=== PATIENT | female | born 1960 | race Caucasian/White ===

== ENCOUNTER 2017-03-26 19:55 | Emergency (ER) | payer OTHER ==
[~2017-03-26] VITALS: Ht 165.1 cm; Wt 58.1 kg
[2017-03-26 20:08] VITALS: BP 165/92
== END 2017-03-26 22:24 | disposition home or self-care (01) ==
LOC: ED 19:55
DX: S00.83XA Contusion of other part of head, initial encounter (principal); Z91.040 Latex allergy status; W01.0XXA Fall on same level from slipping, tripping and stumbling without subsequent striking against object, initial encounter; Y93.E1 Activity, personal bathing and showering; Y92.89 Other specified places as the place of occurrence of the external cause; Y99.8 Other external cause status

== ENCOUNTER 2017-11-04 12:10 | Emergency (ER) | payer OTHER ==
[~2017-11-04] VITALS: Wt 59.0 kg
[2017-11-04 12:36] LABS: BASO % 0.7 % (0.0-1.0); EOS % 0.7 % (1.0-4.0); HEMATOCRIT 33.1 % (37.0-47.0); HEMOGLOBIN 11.5 g/dl (12.0-16.0); LYMPH # 0.6 10*3/uL (1.3-4.4); LYMPH % 21.6 % (27.0-41.0); MEAN CORPUSCULAR HGB 30.9 pg (27.0-31.0); MEAN CORPUSCULAR HGB CONC 34.7 g/dl (33.0-37.0); MEAN PLATELET VOLUME 9.4 fl (9.6-12.3); MONO # 0.3 10*3/uL (0.1-1.0); MONO % 10.7 % (3.0-9.0); NEUT # 1.9 10*3/uL (2.3-7.9); PLATELET COUNT AUTOMATED 103 10*3/uL (130-400); RED BLOOD COUNT 3.72 10*6/uL (4.10-5.10); RED CELL DISTRI WIDTH 13.8 % (0-14.5); WHITE BLOOD COUNT 2.9 10*3/uL (4.8-10.8)
[2017-11-04 12:48] LABS: ACT PARTIAL THROMBO TIME 28.6 SECONDS (20.8-31.5)
[2017-11-04 12:54] LABS: ALBUMIN 4.4 gm/dl (3.1-4.5); ALKALINE PHOSPHATASE 133 U/L (45-117); BUN 15 mg/dl (7-24); CHLORIDE 90 mmol/L (98-107); CREATININE 1.14 mg/dL (0.55-1.02); POTASSIUM 4.2 mmol/L (3.5-5.1); SGOT/AST 39 IU/L (3-35); SGPT/ALT 25 U/L (12-78); SODIUM 126 mmol/L (136-145); TOTAL PROTEIN 7.8 gm/dL (6.4-8.2)
[2017-11-04 13:05] LABS: TROPONIN I < 0.015 ng/ml (<0.045)
[2017-11-04 14:01] LABS: BILIRUBIN NEGATIVE (NEGATIVE); BLOOD TRACE-INTACT (NEGATIVE); CLARITY SL CLOUDY (CLEAR); COLOR YELLOW (YELLOW); GLUCOSE NEGATIVE (NEGATIVE); KETONE TRACE (NEGATIVE); LEUKO ESTERASE TRACE (NEGATIVE); NITRITE NEGATIVE (NEGATIVE); SPECIFIC GRAVITY <= 1.005 (1.005-1.030); UROBILINOGEN 0.2 E.U./dl (0.2-1.0)
[2017-11-04 14:21] LABS: BACTERIA TRACE
[2017-11-04 14:25] VITALS: BP 170/60
== END 2017-11-04 13:13 | disposition short-term general hospital (02) ==
LOC: ED 12:10
PROVIDERS: Nurse Practitioner Family
DX: I63.9 Cerebral infarction, unspecified (principal); Z90.710 Acquired absence of both cervix and uterus; Z98.51 Tubal ligation status

== ENCOUNTER → 2018-01-27 | Outpatient (CLI) | payer OTHER ==
[2018-01-27 09:49] LABS: BUN 22 mg/dl (7-24); CHLORIDE 105 mmol/L (98-107); CREATININE 0.96 mg/dL (0.55-1.02); POTASSIUM 5.3 mmol/L (3.5-5.1); SODIUM 139 mmol/L (136-145)
== END | disposition home or self-care (01) ==
LOC: MRI 07:56
PROVIDERS: Student in an Organized Health Care Education/Training Program
DX: I77.6 Arteritis, unspecified (principal)

== ENCOUNTER → 2018-06-22 | Outpatient (CLI) | payer OTHER | END | disposition home or self-care (01) | LOC: MAMMO 06-15 11:00 | DX: N64.52 Nipple discharge (principal) ==

== ENCOUNTER 2019-07-06 10:10 | Inpatient (IN) | payer OTHER ==
[~2019-07-06] VITALS: Ht 167.6 cm; Wt 66.8 kg
[2019-07-06 10:15] VITALS: BP 153/82
[2019-07-06 10:51] LABS: HEMATOCRIT 34.6 % (37.0-47.0); HEMOGLOBIN 12.8 g/dl (12.0-16.0); MEAN CELL VOLUME 92.8 fl (81.0-99.0); MEAN CORPUSCULAR HGB 34.3 pg (27.0-31.0); MEAN PLATELET VOLUME 9.6 fl (9.6-12.3); PLATELET COUNT AUTOMATED 111 10*3/uL (130-400); RED BLOOD COUNT 3.73 10*6/uL (4.10-5.10); RED CELL DISTRI WIDTH 11.5 % (0-14.5); WHITE BLOOD COUNT 5.2 10*3/uL (4.8-10.8)
[2019-07-06 10:56] LABS: ACT PARTIAL THROMBO TIME 28.1 SECONDS (20.0-32.1)
[2019-07-06 11:00] LABS: ALBUMIN 4.7 gm/dl (3.1-4.5); ALKALINE PHOSPHATASE 118 U/L (45-117); BUN 11 mg/dl (7-24); CHLORIDE 82 mmol/L (98-107); CREATININE 0.99 mg/dL (0.55-1.02); POTASSIUM 4.6 mmol/L (3.5-5.1); SGOT/AST 48 IU/L (3-35); SGPT/ALT 28 U/L (12-78); TOTAL PROTEIN 8.3 gm/dL (6.4-8.2)
[2019-07-06 11:02] LABS: ETHYL ALCOHOL < 3.0 mg/dl (<3); TROPONIN I < 0.015 ng/ml (<0.045)
[2019-07-06 11:03] LABS: SODIUM 116 mmol/L (136-145)
--- NOTE | 2019-07-06 11:03 | NUR ---
DR GARCIA AWARE OF CRITIAL NA 116 AND LA OF 3.4
[2019-07-06 11:09] LABS: PLATELET SUFFICIENCY LOW (NORMAL); TOTAL CELLS COUNTED 100 #CELLS
--- NOTE | 2019-07-06 11:42 | NUR ---
LAB CALLS AND STATES THAT THE PTS OSMOLALITY IS 246. DOC MADE AWARE.
[2019-07-06 12:00] VITALS: BP 159/79
[2019-07-06 13:25] VITALS: BP 147/81
[2019-07-06 13:36] LABS: BILIRUBIN NEGATIVE (NEGATIVE); BLOOD 1+ (NEGATIVE); CLARITY SL CLOUDY (CLEAR); COLOR YELLOW (YELLOW); GLUCOSE NEGATIVE (NEGATIVE); KETONE 2+ (NEGATIVE); LEUKO ESTERASE NEGATIVE (NEGATIVE); NITRITE NEGATIVE (NEGATIVE); PH 5.5 (5.0-9.0); SPECIFIC GRAVITY 1.025 (1.005-1.030); UROBILINOGEN 0.2 E.U./dl (0.2-1.0)
[2019-07-06 13:47] LABS: BACTERIA 2+; MUCOUS 1+
[2019-07-06 14:43] LABS: URINE AMPHETAMINES < 1000 (1000ng/ml); URINE BARBITURATES < 200 (200ng/ml); URINE BENZODIAZEPINES > 200 (200ng/ml); URINE CANNABINOIDS (THC) < 50 (50ng/ml); URINE COCAINE < 300 (300ng/ml); URINE METHADONE < 300 (300ng/ml); URINE OPIATES < 300 (300ng/ml)
[2019-07-06 14:45] LABS: URINE PHENCYCLIDINE < 25 (25ng/ml)
[2019-07-06 17:55] VITALS: BP 151/84
--- NOTE | 2019-07-06 17:55 | NUR ---
A 59, admitted to ICCU, under the services of DALIA Frank MD with a diagnosis of ALCOHOL WITHDRAWAL,LOW NA AND SEIZURE ACTIVITY. Chief complaint is JUST DIDNT FEEL RIGHT. Patient arrived via stretcher from ER. Monitor applied. Initial assessment completed. Vital signs taken and recorded. DALIA FRANK MD notified of admission to the unit. Orders received. See assessment for past medical history, medications and allergies. Patient and/or family oriented to unit. [facility] ICCU visitation policy reviewed. Clothing/patient valuable form completed. ADRIANA SELF
[2019-07-06] MEDS ORDERED: SINGULAIR10 M1 PO (18:10)
[2019-07-06] MEDS ORDERED: RANITIDINE HCL150 M1 PO (18:11)
[2019-07-06] MEDS ORDERED: PROTONIX40 MG PO (18:13)
[2019-07-06] MEDS ORDERED: LEXAPRO20 MG PO (18:14)
[2019-07-06] MEDS ORDERED: Zestril,Prinivi40 MG PO (18:15)
[2019-07-06] MEDS ORDERED: Synthroid,Levo25 MCG PO (18:16)
[2019-07-06 18:54] LABS: BUN 10 mg/dl (7-24); CHLORIDE 87 mmol/L (98-107); POTASSIUM 4.3 mmol/L (3.5-5.1)
[2019-07-06 18:59] LABS: SODIUM 119 mmol/L (136-145)
[2019-07-06 20:00] VITALS: BP 151/73
--- NOTE | 2019-07-06 20:59 | NUR ---
PATIENTS STATED THAT PATIENT IS ASKING FOR MEDICATION TO HELP WITH HER SINUSES SAID THAT SHE IS BLOWING HER NOSE AND IT IS GREEN ANDTHICK MUCUS. CALLED DOCTOR ROGERIO AND INFORMED HIM THAT PATIENT IS REQUESTING MEDICATION.
[2019-07-06 22:30] LABS: BUN 10 mg/dl (7-24); CHLORIDE 91 mmol/L (98-107); POTASSIUM 3.9 mmol/L (3.5-5.1); SODIUM 122 mmol/L (136-145)
--- NOTE | 2019-07-06 22:37 | NUR ---
DOCTOR BROWN MADE AWARE OF PATIENTS LABS ORDERS RECIEVED TO PUT FLUIDS AT 70ML/HR AND RECHECK SODIUM IN 4 HOURS
[2019-07-07] VITALS: BP 149/81
[2019-07-07 04:00] VITALS: BP 128/76
[2019-07-07 07:11] LABS: CHLORIDE 92 mmol/L (98-107); POTASSIUM 3.7 mmol/L (3.5-5.1); SODIUM 124 mmol/L (136-145)
[2019-07-07 07:17] LABS: ALBUMIN 4.5 gm/dl (3.1-4.5); ALKALINE PHOSPHATASE 114 U/L (45-117); BUN 9 mg/dl (7-24); CHOLESTEROL 372 mg/dL (<200); CREATININE 0.85 mg/dL (0.55-1.02); PHOSPHOROUS 2.1 mg/dL (2.5-4.9); SGOT/AST 50 IU/L (3-35); SGPT/ALT 28 U/L (12-78); TOTAL PROTEIN 7.6 gm/dL (6.4-8.2); TRIGLYCERIDES 145 mg/dl (<150); VLDL CHOLESTEROL 29 mg/dL (6-40)
[2019-07-07 07:18] LABS: FREE T4 1.05 ng/dl (0.76-1.46); HDL CHOLESTEROL 120 mg/dl (40-60); HEMATOCRIT 34.4 % (37.0-47.0); HEMOGLOBIN 12.7 g/dl (12.0-16.0); LDL CHOLESTEROL 223 mg/dL (9-159); MEAN CORPUSCULAR HGB 34.3 pg (27.0-31.0); MEAN CORPUSCULAR HGB CONC 36.9 g/dl (33.0-37.0); MEAN PLATELET VOLUME 10.5 fl (9.6-12.3); PLATELET COUNT AUTOMATED 88 10*3/uL (130-400); RED CELL DISTRI WIDTH 11.7 % (0-14.5); WHITE BLOOD COUNT 3.4 10*3/uL (4.8-10.8)
--- NOTE | 2019-07-07 07:20 | NUR ---
SODIUM LEVEL REPORTED TO DR BROWN. NO IV FLUIDS OREDERED AT THIS TIME. RECEHCK SODIUM LEVEL AT 1030 AM
--- NOTE | 2019-07-07 07:20 | NUR ---
24 HR chart check completed.
[2019-07-07 07:43] VITALS: BP 138/84
[2019-07-07 08:05] LABS: PLATELET SUFFICIENCY LOW (NORMAL); TOTAL CELLS COUNTED 100 #CELLS
[2019-07-07 08:12] LABS: VITAMIN D, 25-HYDROXY 61.6 ng/mL (30-100)
--- NOTE | 2019-07-07 08:39 | NUR ---
PT RESTING ON BED WITH EASY RESPIRATIONS. VASQUEZ CATHETER IN PLACE DRAINING CLEAR YELLOW URINE. PT DENIES ANY PAIN. NO WITHDRAWAL SYMPTOMS NOTED. PT ATE PART OF BREAKFAST NOTING THAT SHE NORMALLY DOES NOT EAT MUCH BREAKFAST. NO SHORTNESS OF BREATH OR CHEST PAIN REPORTED.
--- NOTE | 2019-07-07 11:00 | NUR ---
DR BROWN AT BEDSIDE FOR EXAM. NEW ORDERS PLACED FOR NSS INFUSION AND REPEAT SODIUM LEVLES. PT RESTING QUIETLY AT THIS TIME.
[2019-07-07 12:00] VITALS: BP 142/76
--- NOTE | 2019-07-07 13:57 | NUR ---
PT BECOMING DISORIENTED AT THE DAY GOES ON. JUMPING OUT OF BED UNASSISTED DESPITE BEING TOLD FREQUENTLY TO WAIT FOR ASSISTANCE. STATED SHE WANTS TO GO OUTSIDE FOR A WALK AND STATED SHE IS IN HER APARTMENT AND IN [facility]. ATIVAN TAPER BEING GIVEN ORDERED.
--- NOTE | 2019-07-07 14:08 | NUR ---
IVF'S DECREASED TO 30CC/HR PER DR LAMB ORDER.
--- NOTE | 2019-07-07 14:59 | NUR ---
PT AGITATED WANTING TO LEAVE. PT'S ARRIVED AT THIS TIME AND SHE ARGUED WITH HIM BUT AGREED TO GET BACK IN BED FOR NOW IF HE STAYS WITH HER. PO ATIVAN GIVEN PER PROTOCOL.
--- NOTE | 2019-07-07 15:14 | NUR ---
PT CONTINUES TO WANT TO LEAVE. AT BEDSIDE AND TRYING TO ENCOURAGE PT TO STAY DUE TO HAVING SEIZURES. PT IS INSISTENT ON GOING HOME. PT IS AWARE OF PERSON, PLACE AND TIME NOW AND JUST STATES "I DONT WANT ANY PART OF THIS". DR WEBSTER WAS CALLED AND STATED PT IS TO FOLLOW UP WITH HIM FOR SEIZURE MED AND LAB WORK ON TUESDAY IS SHE INSISTS ON SIGNING OUT AMA TODAY. PT AND HER INSTRUCTED ON THIS.
--- NOTE | 2019-07-07 15:27 | NUR ---
Patient signed out AMA. Patient encouraged to stay and advised of possible consequences of premature discharge. Physician DR WEBSTER and building insulation supervisor CHAPARRO WALKER notified. Patient instructed what to do regarding care post-departure from the hospital; emergency phone numbers provided. Patent was accompanied by HER EFREN. RUSSELL EMERY
[2019-07-08 16:05] LABS: HEPATITIS B SURFACE AG Negative (Negative); HEPATITIS C VIRUS ANTIBODY <0.1 s/co (0.0-0.9)
== END 2019-07-07 17:36 | disposition left against medical advice (07) | DRG 640 ==
LOC: ED 10:10 → ICCU 16:22 → EDHOLD 16:22 → ICCU 17:17
PROVIDERS: Emergency Medicine; Internal Medicine; Student in an Organized Health Care Education/Training Program; ADMIT Internal Medicine
DX: E87.1 Hypo-osmolality and hyponatremia (principal); I61.9 Nontraumatic intracerebral hemorrhage, unspecified; F10.230 Alcohol dependence with withdrawal, uncomplicated; E87.2 Acidosis; R74.0 Nonspecific elevation of levels of transaminase and lactic acid dehydrogenase [LDH]; D69.6 Thrombocytopenia, unspecified; D72.810 Lymphocytopenia; F41.9 Anxiety disorder, unspecified; R29.6 Repeated falls; J32.9 Chronic sinusitis, unspecified; J30.2 Other seasonal allergic rhinitis; K21.9 Gastro-esophageal reflux disease without esophagitis; I10 Essential (primary) hypertension; F32.9 Major depressive disorder, single episode, unspecified; E03.9 Hypothyroidism, unspecified; E87.8 Other disorders of electrolyte and fluid balance, not elsewhere classified; E83.39 Other disorders of phosphorus metabolism; Z86.73 Personal history of transient ischemic attack (TIA), and cerebral infarction without residual deficits; Z82.49 Family history of ischemic heart disease and other diseases of the circulatory system; Z83.3 Family history of diabetes mellitus; Z81.8 Family history of other mental and behavioral disorders

== ENCOUNTER 2019-07-07 16:59 | Inpatient (IN) | payer OTHER ==
[~2019-07-07] VITALS: Ht 167.6 cm; Wt 66.7 kg
[~2019-07-07 16:59] MED LIST: LEXAPRO20 MG PO; PROTONIX40 MG PO; RANITIDINE HCL150 M1 PO; SINGULAIR10 M1 PO; Synthroid,Levo25 MCG PO; Zestril,Prinivi40 MG PO
[2019-07-07 17:00] VITALS: BP 168/86
[2019-07-07 17:36] LABS: BASO % 0.4 % (0.0-1.0); EOS % 0.2 % (1.0-4.0); HEMATOCRIT 34.6 % (37.0-47.0); HEMOGLOBIN 12.6 g/dl (12.0-16.0); LYMPH # 0.5 10*3/uL (1.3-4.4); LYMPH % 10.4 % (27.0-41.0); MEAN CELL VOLUME 94.3 fl (81.0-99.0); MEAN CORPUSCULAR HGB 34.3 pg (27.0-31.0); MEAN CORPUSCULAR HGB CONC 36.4 g/dl (33.0-37.0); MONO # 0.4 10*3/uL (0.1-1.0); MONO % 9.3 % (3.0-9.0); NEUT # 3.7 10*3/uL (2.3-7.9); NEUT % 79.3 % (47.0-73.0); PLATELET COUNT AUTOMATED 88 10*3/uL (130-400); RED BLOOD COUNT 3.67 10*6/uL (4.10-5.10); RED CELL DISTRI WIDTH 11.7 % (0-14.5); WHITE BLOOD COUNT 4.6 10*3/uL (4.8-10.8)
[2019-07-07 17:53] LABS: ALBUMIN 4.7 gm/dl (3.1-4.5); ALKALINE PHOSPHATASE 124 U/L (45-117); BUN 12 mg/dl (7-24); CHLORIDE 89 mmol/L (98-107); CREATININE 1.01 mg/dL (0.55-1.02); SGOT/AST 76 IU/L (3-35); SGPT/ALT 41 U/L (12-78); SODIUM 122 mmol/L (136-145); TOTAL PROTEIN 8.1 gm/dL (6.4-8.2)
--- NOTE | 2019-07-07 18:00 | NUR ---
PT CONFUSED. DRESSED SELF, WANTING TO LEAVE. DISCONTINUED OWN TELE MONITOR. ABLE TO REDIRECT PT TO BED, DISROBE AND PLACE IN A GOWN. PT UNCOOPERATIVE WITH TELE MONITOR. AT BEDSIDE. PT ORIENTED TO SELF ONLY.
[2019-07-07 18:50] VITALS: BP 156/84
--- NOTE | 2019-07-07 18:50 | NUR ---
A 59, admitted to ICCU, under the services of DALIA Frank MD with a diagnosis of HYPONATREMIA. Chief complaint is PT SIGNED AMA 4 HOURS AGO. Patient arrived via stretcher from ER. Monitor applied. Initial assessment completed. Vital signs taken and recorded. DALIA FRANK MD notified of admission to the unit. Orders received. See assessment for past medical history, medications and allergies. Patient and/or family oriented to unit. [facility] ICCU visitation policy reviewed. Clothing/patient valuable form completed. NANCY SIBLEY
--- NOTE | 2019-07-07 19:00 | NUR ---
ON ARRIVAL TO ICCU PT IMMEDIATLY JUMPING OUT OF BED, CONFUSED STATING SHE IS LEAVING. PT IS CONFUSED TO PLACE AND TIME. PT BECOMING AGITATED PUSHING STAFF TRYING TO LEAVE. DR WEBSTER NOTIFIED. PINK SLIPPED FILLED OUT. ORDER FOR HALDOL RECIEVED.
--- NOTE | 2019-07-07 19:50 | NUR ---
SPOKE WITH DR WEBSTER REGARDING ORDERS FOR PATIENT, ORDER RECIEVED FOR DANE HECTOR NOW FOR CONTINUED AGITATION. STATED TO CONTINUE ORDERS PERTAINING TO PATIENT CAR EAND OTHER MEDICATIONS FROM EARLIER TODAY PRIOR TO PATIENT LEAVING AMA. ORDER TO OBTIAN BMP AND CONSULT WITH RESULTS.
[2019-07-07 20:00] VITALS: BP 143/79
--- NOTE | 2019-07-07 20:13 | NUR ---
IM GEODON GIVEN INTO THE RIGHT DELTOID PER DRS ORDERS FOR INCREASED AGITATION, RESTLESSNESS. PATIENT TOLERATED WELL. RN WILL MONITOR FOR RELIEF OF SYMPTOMS
--- NOTE | 2019-07-07 20:25 | NUR ---
SPOKE WITH DR BROWN REGARDING 2000 LABS, ORDERS RECIEVED TO START IV FLUIDS AND TO CHECK NA LEVEL AT 2330, AND TO CALL HER AT 0000. ORDERS TO BE PLACED
[2019-07-07 20:35] LABS: BUN 12 mg/dl (7-24); CHLORIDE 91 mmol/L (98-107); CREATININE 0.88 mg/dL (0.55-1.02); POTASSIUM 4.1 mmol/L (3.5-5.1); SODIUM 123 mmol/L (136-145)
--- NOTE | 2019-07-07 21:19 | NUR ---
PATIENT RESTING WITH EYES CLOSED AT THIS TIME, SNORING RESPIRATIONS WITHOUT ANY SIGNS OR SYMPTOMS OF DISTRESS. APPEARS TO BE RESTING MUCH EASIER THAN EARLIER. RN WILL CONTINUE TO MONITOR
[2019-07-08] VITALS: BP 138/81
[2019-07-08 00:32] LABS: BUN 11 mg/dl (7-24); CHLORIDE 94 mmol/L (98-107); CREATININE 0.88 mg/dL (0.55-1.02); POTASSIUM 4.7 mmol/L (3.5-5.1); SODIUM 124 mmol/L (136-145)
--- NOTE | 2019-07-08 00:39 | NUR ---
SPOKE WITH DR BROWN REGARDING 2330 LABS, STATES TO CONTINUE FLUIDS ORDERED. AND TO OBTAIN LABS AT 500.
--- NOTE | 2019-07-08 00:44 | NUR ---
PATIENT REFUSING TO TAKE SCHEDULED PO ATIVAN, PATIENT REFUSING TO TAKE "ANY MEDS WE GIVE HER" RN TO ADMINISTER IV ATIVAN PER DRS ORDERS FOR INCREASED AGITATION AND RESTLESSNESS. PATIENT ALSO HAS SLIGHT TREMOR NOTED TO BILATERAL HANDS
--- NOTE | 2019-07-08 01:50 | NUR ---
PATIENT IS AGAIN RESTING QUIETLY WITH EYES CLOSED, ALTHOUGH EASILY AWAKENS BY VOICE. PATIENT REMAINS CONFUSED. ALERT TO SELF ONLY. FREQUENTLY ASKS TO GET OUT OF BED AND TELLS STAFF THAT "SHE'S LEAVING" BILATERAL WRIST RESTRAINTS REMAIN IN PLACE PER DRS ORDERS TO PREVENT HARM TO PATIENT AND STAFF. WITHIN SIGHT OF RN. WILL MONITOR
[2019-07-08 04:00] VITALS: BP 152/83
--- NOTE | 2019-07-08 04:16 | NUR ---
PATIENT HAS TAKEN 0400 DOSE OF ATIVAN WITHOUT DIFFICULTY. PATIENT WAS ALSO CLEANED UP AND BATHED FOR LARGE AMOUNT OF INCONTINENT URINE AND BED BATH AND BED CHANGE WERE ALSO COMPLETED AT THIS TIME. PATIENT REMAINS CONFUSED AND INSISTS THAT SHE "MUST GET UP TO GET READY FOR WORK" AND ALSO THAT SHE "IS GOING TO BE LATE FOR WORK" RN ATTEMPTED TO REORIENT PATIENT BUT PATIENT DOES NOT REORIENT.
[2019-07-08 05:16] LABS: ALBUMIN 4.5 gm/dl (3.1-4.5); ALKALINE PHOSPHATASE 120 U/L (45-117); BUN 9 mg/dl (7-24); CHLORIDE 96 mmol/L (98-107); CREATININE 0.83 mg/dL (0.55-1.02); POTASSIUM 3.9 mmol/L (3.5-5.1); SGOT/AST 60 IU/L (3-35); SGPT/ALT 36 U/L (12-78); SODIUM 127 mmol/L (136-145); TOTAL PROTEIN 8.1 gm/dL (6.4-8.2)
[2019-07-08 05:52] LABS: BASO % 0.4 % (0.0-1.0); EOS % 0.8 % (1.0-4.0); HEMATOCRIT 36.3 % (37.0-47.0); HEMOGLOBIN 13.1 g/dl (12.0-16.0); LYMPH # 0.9 10*3/uL (1.3-4.4); LYMPH % 17.5 % (27.0-41.0); MEAN CELL VOLUME 93.6 fl (81.0-99.0); MEAN CORPUSCULAR HGB 33.8 pg (27.0-31.0); MEAN CORPUSCULAR HGB CONC 36.1 g/dl (33.0-37.0); MEAN PLATELET VOLUME 10.6 fl (9.6-12.3); MONO # 0.5 10*3/uL (0.1-1.0); MONO % 10.3 % (3.0-9.0); NEUT # 3.5 10*3/uL (2.3-7.9); NEUT % 70.6 % (47.0-73.0); PLATELET COUNT AUTOMATED 85 10*3/uL (130-400); RED BLOOD COUNT 3.88 10*6/uL (4.10-5.10); RED CELL DISTRI WIDTH 11.8 % (0-14.5)
--- NOTE | 2019-07-08 08:22 | NUR ---
PT HAS BEEN SLEEPING QUIETLY FOR THE LAST 2 HOURS.
[2019-07-08 08:55] VITALS: BP 158/83
--- NOTE | 2019-07-08 08:57 | NUR ---
PT DID WAKE UP AND OPEN EYES, MOVING AROUND IN BED. CONFUSED TO PLACE AND TIME. I TRIED TO GIVE PT HER PO MEDS, SHE PUT THEM IN HER MOUTH BUT THEN SPIT THEM RIGHT BACK OUT AND WOULD NOT SWALLOW THEM.
--- NOTE | 2019-07-08 09:05 | NUR ---
1MG IV ATIVAN GIVEN DUE TO PT REFUSING TO TAKE ANY PO MEDS THIS AM.
--- NOTE | 2019-07-08 09:16 | NUR ---
I SPOKE WITH DR BROWN AND MADE HER AWARE OF PT'S NA LEVEL OF 127. REPEAT NA LEVEL ORDERED FOR 4 HOURS FROM NOW AND CONTINUE TO NORMAL SALINE AT 50CC/HR.
--- NOTE | 2019-07-08 09:48 | NUR ---
DR WEBSTER NOTIFIED PT WILL NOT TAKE ANY PO MEDS. KEPPRA CHANGED TO IV FORM.
--- NOTE | 2019-07-08 09:55 | NUR ---
PT REMAINS CONFUSED STATING THAT SHE IS IN SOME SORT OF SCHOOL AND UNAWARE TO WHY SHE IS HERE. EASILY AGITATED WITH ANY QUESTIONS ASKED OF HER. IS AT BEDSIDE AND SOFT WRIST RESTRAINTS UNTIED HE IS SITTING NEXT TO HER AND WE WILL MONITOR CLOSELY.
--- NOTE | 2019-07-08 10:32 | NUR ---
DR BROWN MADE AWARE OF SODIUM LEVEL OF 130. NEW ORDER TO DC IVF'S AND RECHECK NA LEVEL AT 3PM.
--- NOTE | 2019-07-08 10:52 | NUR ---
PT AWAKE AND CONVERSING WITH AT THIS TIME. COOPERATIVE WITH STAFF AT THIS TIME. RESTRAINTS REMAIN OFF. WANTING TO ORDER SOMETHING TO EAT. IVF'S TURNED OFF PER DR KEVIN ESPINO.
[2019-07-08 12:00] VITALS: BP 149/76
--- NOTE | 2019-07-08 13:47 | NUR ---
[facility] ON [facility] NOTIFIED OF NEW CONSULT ORDER.
[2019-07-08 15:36] VITALS: BP 146/85
--- NOTE | 2019-07-08 16:17 | NUR ---
DR BROWN NOTIFIED OF SODIUM LEVEL OF 130. ORDER TO REPEAT LEVEL AT 2200.
--- NOTE | 2019-07-08 19:24 | NUR ---
PATIENT BECOMING AGITATED STATING SHE WAS LEAVING.DOCTOR DARIN HERE DANE ORDRADHA AND GIVEN AT THIS TIME.
[2019-07-08 20:00] VITALS: BP 148/82
--- NOTE | 2019-07-08 22:26 | NUR ---
CALLED DOCTOR BROWN WITH PATIENTS SODIUM AND IT IS 130 CURRENTLY RESTARTED FLUIDS AND RECHECK SODIUM WITH AM LABS
[2019-07-09] VITALS: BP 102/61
[2019-07-09 04:00] VITALS: BP 117/57
[2019-07-09 08:00] VITALS: BP 134/76
[2019-07-09 09:28] LABS: BUN 12 mg/dl (7-24); CHLORIDE 104 mmol/L (98-107); CREATININE 0.79 mg/dL (0.55-1.02); POTASSIUM 3.6 mmol/L (3.5-5.1); SODIUM 136 mmol/L (136-145)
[2019-07-09 12:00] VITALS: BP 135/62
[2019-07-09 16:00] VITALS: BP 135/62
--- NOTE | 2019-07-09 16:43 | NUR ---
MEDICATED WITH ATIVAN 1MG PO ORDERED FOR ALCOHOL WITHDRAWAL.
[2019-07-09] MEDS ORDERED: SODIUM CHLORIDE1 GM PO (17:26)
[2019-07-09] MEDS ORDERED: KEPPRA750 MG PO (17:26)
[2019-07-09] MEDS ORDERED: ATIVAN0.5 MG PO (17:26)
--- NOTE | 2019-07-09 17:30 | NUR ---
Discharge instructions reviewed with patient/family. Patient receptive and verbalizes understanding. Follow-up care arranged. Written instructions given to patient/family. LUIS FERNANDO RICHARDSON
--- NOTE | 2019-07-09 17:37 | NUR ---
DC TO HOME
== END 2019-07-09 17:37 | disposition home or self-care (01) | DRG 640 ==
LOC: ED 16:59 → ICCU 18:50 → EDHOLD 18:50 → ICCU 18:52
PROVIDERS: Emergency Medicine; Internal Medicine Nephrology; ADMIT Internal Medicine
DX: E87.1 Hypo-osmolality and hyponatremia (principal); G93.41 Metabolic encephalopathy; F41.9 Anxiety disorder, unspecified; R29.6 Repeated falls; E87.8 Other disorders of electrolyte and fluid balance, not elsewhere classified; E83.39 Other disorders of phosphorus metabolism; D69.6 Thrombocytopenia, unspecified; E87.2 Acidosis; R42 Dizziness and giddiness; I10 Essential (primary) hypertension; F32.9 Major depressive disorder, single episode, unspecified; E03.9 Hypothyroidism, unspecified; F10.10 Alcohol abuse, uncomplicated; G40.909 Epilepsy, unspecified, not intractable, without status epilepticus; K21.9 Gastro-esophageal reflux disease without esophagitis; Z90.710 Acquired absence of both cervix and uterus; Z98.51 Tubal ligation status; Z83.3 Family history of diabetes mellitus; Z82.49 Family history of ischemic heart disease and other diseases of the circulatory system; Z82.0 Family history of epilepsy and other diseases of the nervous system; Z79.899 Other long term (current) drug therapy; Z86.73 Personal history of transient ischemic attack (TIA), and cerebral infarction without residual deficits

== ENCOUNTER 2022-09-03 19:22 | Inpatient (IN) | payer OTHER ==
[~2022-09-03] VITALS: Ht 167.6 cm; Wt 64.4 kg
[~2022-09-03 19:22] MED LIST changes: +ATIVAN0.5 MG PO; +KEPPRA750 MG PO; +SODIUM CHLORIDE1 GM PO
[2022-09-03 19:28] VITALS: BP 136/67
[2022-09-03 20:15] LABS: BASO % 0.3 % (0.0-1.0); EOS % 0.6 % (1.0-4.0); HEMATOCRIT 32.3 % (37.0-47.0); LYMPH # 0.7 10*3/uL (1.3-4.4); LYMPH % 21.5 % (27.0-41.0); MEAN CELL VOLUME 103.5 fl (81.0-99.0); MEAN CORPUSCULAR HGB CONC 32.8 g/dl (33.0-37.0); MEAN PLATELET VOLUME 10.8 fl (9.6-12.3); MONO # 0.3 10*3/uL (0.1-1.0); MONO % 9.3 % (3.0-9.0); NEUT # 2.3 10*3/uL (2.3-7.9); PLATELET COUNT AUTOMATED 102 10*3/uL (130-400); RED BLOOD COUNT 3.12 10*6/uL (4.10-5.10); RED CELL DISTRI WIDTH 13.8 % (0-14.5); WHITE BLOOD COUNT 3.4 10*3/uL (4.8-10.8)
[2022-09-03 20:34] LABS: ALKALINE PHOSPHATASE 145 U/L (46-116); BUN 9 mg/dl (9-23); CHLORIDE 102 mmol/L (98-107); POTASSIUM 3.8 mmol/L (3.4-5.1); SGPT/ALT 22 U/L (10-49); TOTAL PROTEIN 6.4 gm/dL (6.0-8.0)
[2022-09-03 20:35] VITALS: BP 108/59
[2022-09-03 20:40] LABS: ETHYL ALCOHOL < 3.0 mg/dl (<3)
[2022-09-03 21:03] LABS: BILIRUBIN Negative (Negative); BLOOD Negative (Negative); CLARITY Clear (Clear); COLOR Yellow (Yellow); GLUCOSE Negative (Negative); KETONE Trace (Negative); LEUKO ESTERASE Negative (Negative); NITRITE Negative (Negative); SPECIFIC GRAVITY >= 1.030 (1.001-1.030)
[2022-09-03 21:05] LABS: URINE AMPHETAMINES Negative (1000ng/ml); URINE BARBITURATES Positive (200ng/ml); URINE BENZODIAZEPINES Negative (200ng/ml); URINE CANNABINOIDS (THC) Negative (50ng/ml); URINE COCAINE Negative (300ng/ml); URINE METHADONE Negative (300ng/ml); URINE OPIATES Negative (300ng/ml); URINE PHENCYCLIDINE Negative (25ng/ml)
[2022-09-03 21:35] LABS: RBC 0-2 rbc/hpf (0-2)
[2022-09-03 21:36] LABS: BACTERIA TRACE; EPITHELIAL CELLS 0-2; MUCOUS 1+
[2022-09-03 21:50] VITALS: BP 106/52
[2022-09-03] MEDS ORDERED: LOPRESSOR25 MG PO (22:09)
[2022-09-03] MEDS ORDERED: ASPIRIN CHEWABL81 MG PO (22:09)
[2022-09-03] MEDS ORDERED: NATURE'S BLEND F1 MG PO (22:09)
[2022-09-03] MEDS ORDERED: LEXAPRO10 MG PO (22:10)
[2022-09-03] MEDS ORDERED: LIPITOR40 MG PO (22:10)
[2022-09-03] MEDS ORDERED: KEPPRA750 MG PO (22:11)
[2022-09-03] MEDS ORDERED: XYZAL5 M1 PO (22:12)
[2022-09-03] MEDS ORDERED: ZESTRIL10 MG PO (22:12)
[2022-09-03] MEDS ORDERED: LANSOPRAZOLE30 MG PO (22:12)
[2022-09-03 22:25] VITALS: BP 90/36
[2022-09-03 23:55] VITALS: BP 100/42
[2022-09-04 06:45] LABS: BASO % 0.9 % (0.0-1.0); EOS % 0.9 % (1.0-4.0); HEMATOCRIT 31.3 % (37.0-47.0); LYMPH # 0.5 10*3/uL (1.3-4.4); LYMPH % 19.7 % (27.0-41.0); MEAN CELL VOLUME 102.3 fl (81.0-99.0); MEAN CORPUSCULAR HGB 33.3 pg (27.0-31.0); MEAN CORPUSCULAR HGB CONC 32.6 g/dl (33.0-37.0); MEAN PLATELET VOLUME 11.1 fl (9.6-12.3); MONO # 0.2 10*3/uL (0.1-1.0); MONO % 9.2 % (3.0-9.0); NEUT # 1.6 10*3/uL (2.3-7.9); NEUT % 68.9 % (47.0-73.0); PLATELET COUNT AUTOMATED 95 10*3/uL (130-400); RED BLOOD COUNT 3.06 10*6/uL (4.10-5.10); RED CELL DISTRI WIDTH 13.7 % (0-14.5); WHITE BLOOD COUNT 2.3 10*3/uL (4.8-10.8)
[2022-09-04 07:04] LABS: ALKALINE PHOSPHATASE 135 U/L (46-116); BUN 7 mg/dl (9-23); CHLORIDE 105 mmol/L (98-107); POTASSIUM 3.5 mmol/L (3.4-5.1); SGPT/ALT 21 U/L (10-49); TOTAL PROTEIN 6.2 gm/dL (6.0-8.0)
[2022-09-04 08:00] VITALS: BP 146/99
[2022-09-04 12:00] VITALS: BP 151/70
[2022-09-04 16:00] VITALS: BP 160/82
[2022-09-04 20:00] VITALS: BP 127/63
[2022-09-05] VITALS: BP 122/56
[2022-09-05 08:00] VITALS: BP 146/64
[2022-09-05 12:00] VITALS: BP 117/73
[2022-09-05 16:00] VITALS: BP 120/63
[2022-09-05] MEDS ORDERED: ALPRAZOLAM0.5 M3 PO (19:53)
[2022-09-05 20:00] VITALS: BP 102/45
[2022-09-06] VITALS: BP 100/63
[2022-09-06 08:00] VITALS: BP 129/65
[2022-09-06 10:58] LABS: HEMATOCRIT 31.4 % (37.0-47.0); MEAN CELL VOLUME 101.9 fl (81.0-99.0); MEAN CORPUSCULAR HGB 34.7 pg (27.0-31.0); MEAN CORPUSCULAR HGB CONC 34.1 g/dl (33.0-37.0); MEAN PLATELET VOLUME 10.7 fl (9.6-12.3); PLATELET COUNT AUTOMATED 94 10*3/uL (130-400); RED BLOOD COUNT 3.08 10*6/uL (4.10-5.10); RED CELL DISTRI WIDTH 13.8 % (0-14.5)
[2022-09-06 11:03] LABS: MANUAL DIFF REFLEX YES
[2022-09-06 11:04] LABS: WHITE BLOOD COUNT 1.5 10*3/uL (4.8-10.8)
[2022-09-06 11:14] LABS: ALKALINE PHOSPHATASE 132 U/L (46-116); BUN 6 mg/dl (9-23); CHLORIDE 105 mmol/L (98-107); POTASSIUM 3.7 mmol/L (3.4-5.1); SGPT/ALT 18 U/L (10-49); THYROID STIM HORMONE (HS) 1.152 uIU/ml (0.550-4.780); TOTAL PROTEIN 6.4 gm/dL (6.0-8.0)
[2022-09-06 11:47] LABS: ATYPICAL LYMPHS 2 % (0-0); BASOPHILS 1 % (0-1); OVALOCYTES FEW; POLYCHROMASIA SLIGHT; TOTAL CELLS COUNTED 100 #CELLS
[2022-09-06 11:48] LABS: PLATELET SUFFICIENCY LOW (NORMAL)
[2022-09-06 12:00] VITALS: BP 90/63
[2022-09-06 16:00] VITALS: BP 108/50
[2022-09-06 20:00] VITALS: BP 126/62
[2022-09-07] VITALS: BP 118/60
[2022-09-07 08:54] VITALS: BP 134/73
[2022-09-07 12:34] VITALS: BP 136/86
[2022-09-07 16:00] VITALS: BP 134/72
[2022-09-07 20:00] VITALS: BP 126/83
[2022-09-08] VITALS: BP 99/43
[2022-09-08 07:30] LABS: ALKALINE PHOSPHATASE 135 U/L (46-116); CHLORIDE 108 mmol/L (98-107); SGPT/ALT 20 U/L (10-49); TOTAL PROTEIN 6.2 gm/dL (6.0-8.0)
[2022-09-08 07:44] LABS: BUN < 5 mg/dl (9-23)
[2022-09-08 08:00] VITALS: BP 132/63
[2022-09-08 08:35] LABS: BASO % 1.6 % (0.0-1.0); EOS % 1.6 % (1.0-4.0); HEMATOCRIT 31.8 % (37.0-47.0); LYMPH # 0.5 10*3/uL (1.3-4.4); LYMPH % 25.8 % (27.0-41.0); MEAN CELL VOLUME 102.3 fl (81.0-99.0); MEAN CORPUSCULAR HGB 33.8 pg (27.0-31.0); MEAN PLATELET VOLUME 10.9 fl (9.6-12.3); MONO # 0.2 10*3/uL (0.1-1.0); MONO % 10.8 % (3.0-9.0); NEUT # 1.1 10*3/uL (2.3-7.9); NEUT % 59.7 % (47.0-73.0); PLATELET COUNT AUTOMATED 103 10*3/uL (130-400); RED BLOOD COUNT 3.11 10*6/uL (4.10-5.10); RED CELL DISTRI WIDTH 13.7 % (0-14.5)
[2022-09-08 08:38] LABS: WHITE BLOOD COUNT 1.9 10*3/uL (4.8-10.8)
[2022-09-08 09:28] LABS: PLATELET SUFFICIENCY LOW (NORMAL); TOTAL CELLS COUNTED 100 #CELLS
[2022-09-08 12:00] VITALS: BP 130/58
[2022-09-08 16:00] VITALS: BP 92/52
[2022-09-08 20:00] VITALS: BP 98/54
[2022-09-09] VITALS: BP 102/60
[2022-09-09 07:20] LABS: CHLORIDE 108 mmol/L (98-107); POTASSIUM 4.3 mmol/L (3.4-5.1)
[2022-09-09 07:29] LABS: BUN < 5 mg/dl (9-23)
[2022-09-09 08:00] VITALS: BP 110/58
[2022-09-09 12:00] VITALS: BP 115/56
[2022-09-09 16:00] VITALS: BP 114/55
[2022-09-09 20:00] VITALS: BP 128/59
[2022-09-10] VITALS: BP 117/62
[2022-09-10 07:37] LABS: BUN 6 mg/dl (9-23); CHLORIDE 108 mmol/L (98-107); POTASSIUM 4.2 mmol/L (3.4-5.1)
[2022-09-10 08:00] VITALS: BP 143/76
[2022-09-10] MEDS ORDERED: LEVETIRACETAM500 MG PO (10:12)
[2022-09-10 12:00] VITALS: BP 137/66
[2022-09-10 16:00] VITALS: BP 118/51
[2022-09-10 20:00] VITALS: BP 132/66
[2022-09-11] VITALS: BP 130/61
[2022-09-11 06:52] LABS: BUN 7 mg/dl (9-23); CHLORIDE 107 mmol/L (98-107); POTASSIUM 4.2 mmol/L (3.4-5.1)
[2022-09-11 08:00] VITALS: BP 150/77
[2022-09-11 12:00] VITALS: BP 142/71
[2022-09-11 16:00] VITALS: BP 137/60
[2022-09-11 20:00] VITALS: BP 140/67
[2022-09-12] VITALS: BP 136/63
[2022-09-12 08:00] VITALS: BP 148/70
[2022-09-12 12:00] VITALS: BP 130/64
[2022-09-12 16:00] VITALS: BP 139/64
[2022-09-12 20:00] VITALS: BP 124/61
[2022-09-13] VITALS: BP 120/59
[2022-09-13 08:00] VITALS: BP 130/66
[2022-09-13 12:00] VITALS: BP 114/59
[2022-09-13 13:27] LABS: BASO % 0.3 % (0.0-1.0); EOS # 0.1 10*3/uL (0.0-0.4); EOS % 1.6 % (1.0-4.0); LYMPH # 0.5 10*3/uL (1.3-4.4); LYMPH % 14.7 % (27.0-41.0); MEAN CELL VOLUME 97.6 fl (81.0-99.0); MEAN CORPUSCULAR HGB 33.7 pg (27.0-31.0); MEAN CORPUSCULAR HGB CONC 34.5 g/dl (33.0-37.0); MEAN PLATELET VOLUME 10.3 fl (9.6-12.3); MONO # 0.5 10*3/uL (0.1-1.0); NEUT # 2.1 10*3/uL (2.3-7.9); NEUT % 68.4 % (47.0-73.0); PLATELET COUNT AUTOMATED 109 10*3/uL (130-400); RED BLOOD COUNT 3.38 10*6/uL (4.10-5.10); WHITE BLOOD COUNT 3.1 10*3/uL (4.8-10.8)
[2022-09-13 13:38] LABS: BUN 11 mg/dl (9-23); CHLORIDE 106 mmol/L (98-107)
[2022-09-13] MEDS ORDERED: B-1100 M1 PO (15:01)
[2022-09-13 16:00] VITALS: BP 127/57
== END 2022-09-13 17:25 | DRG 65 ==
LOC: ED 19:22 → EDHOLD 21:24 → 5E 21:24
PROVIDERS: Internal Medicine; ADMIT Internal Medicine; ATTEND Internal Medicine
DX: I63.412 Cerebral infarction due to embolism of left middle cerebral artery (principal); D61.818 Other pancytopenia; G40.419 Other generalized epilepsy and epileptic syndromes, intractable, without status epilepticus; E87.1 Hypo-osmolality and hyponatremia; F33.1 Major depressive disorder, recurrent, moderate; E87.20 Acidosis, unspecified; R65.10 Systemic inflammatory response syndrome (SIRS) of non-infectious origin without acute organ dysfunction; G81.91 Hemiplegia, unspecified affecting right dominant side; D75.89 Other specified diseases of blood and blood-forming organs; Z66 Do not resuscitate; G83.84 Todd's paralysis (postepileptic); R47.01 Aphasia; E83.42 Hypomagnesemia; F10.10 Alcohol abuse, uncomplicated; F41.1 Generalized anxiety disorder; E78.2 Mixed hyperlipidemia; R62.7 Adult failure to thrive; F01.50 Vascular dementia, unspecified severity, without behavioral disturbance, psychotic disturbance, mood disturbance, and anxiety; R26.2 Difficulty in walking, not elsewhere classified; R13.19 Other dysphagia; K21.00 Gastro-esophageal reflux disease with esophagitis, without bleeding; I10 Essential (primary) hypertension; E03.9 Hypothyroidism, unspecified; E83.39 Other disorders of phosphorus metabolism; Z90.710 Acquired absence of both cervix and uterus; Z98.51 Tubal ligation status; Z88.8 Allergy status to other drugs, medicaments and biological substances; Z82.0 Family history of epilepsy and other diseases of the nervous system; Z79.82 Long term (current) use of aspirin; Z79.899 Other long term (current) drug therapy

== ENCOUNTER 2022-10-18 13:45 | Emergency (ER) | payer OTHER ==
[~2022-10-18] VITALS: Wt 59.0 kg
[~2022-10-18 13:45] MED LIST changes: +ALPRAZOLAM0.5 M3 PO; +ASPIRIN CHEWABL81 MG PO; +B-1100 M1 PO; +LANSOPRAZOLE30 MG PO; +LEVETIRACETAM500 MG PO; +LEXAPRO10 MG PO; +LIPITOR40 MG PO; +LOPRESSOR25 MG PO; +NATURE'S BLEND F1 MG PO; +XYZAL5 M1 PO; +ZESTRIL10 MG PO
[2022-10-18 13:58] VITALS: BP 141/69
[2022-10-18 14:46] LABS: BASO % 0.6 % (0.0-1.0); EOS % 0.6 % (1.0-4.0); HEMATOCRIT 30.3 % (37.0-47.0); LYMPH # 0.5 10*3/uL (1.3-4.4); LYMPH % 15.5 % (27.0-41.0); MEAN CELL VOLUME 88.6 fl (81.0-99.0); MEAN CORPUSCULAR HGB 31.6 pg (27.0-31.0); MEAN CORPUSCULAR HGB CONC 35.6 g/dl (33.0-37.0); MEAN PLATELET VOLUME 10.1 fl (9.6-12.3); MONO # 0.3 10*3/uL (0.1-1.0); MONO % 7.4 % (3.0-9.0); NEUT # 2.5 10*3/uL (2.3-7.9); NEUT % 75.6 % (47.0-73.0); PLATELET COUNT AUTOMATED 72 10*3/uL (130-400); RED BLOOD COUNT 3.42 10*6/uL (4.10-5.10); RED CELL DISTRI WIDTH 11.9 % (0-14.5); WHITE BLOOD COUNT 3.4 10*3/uL (4.8-10.8)
[2022-10-18 15:05] LABS: ALKALINE PHOSPHATASE 112 U/L (46-116); BUN 13 mg/dl (9-23); CHLORIDE 99 mmol/L (98-107); LIPASE 55 U/L (12-53); POTASSIUM 3.9 mmol/L (3.4-5.1); SGPT/ALT 9 U/L (10-49); TOTAL PROTEIN 7.1 gm/dL (6.0-8.0)
[2022-10-18 15:42] LABS: BILIRUBIN Negative (Negative); BLOOD Negative (Negative); CLARITY Clear (Clear); COLOR Dark Yellow (Yellow); GLUCOSE Negative (Negative); KETONE Negative (Negative); LEUKO ESTERASE Trace (Negative); NITRITE Negative (Negative); SPECIFIC GRAVITY 1.025 (1.001-1.030)
[2022-10-18 17:25] LABS: RBC 0-2 rbc/hpf (0-2)
[2022-10-18] MEDS ORDERED: OMNICEF300 MG PO (18:10)
== END 2022-10-18 18:23 | disposition home or self-care (01) ==
LOC: ED 13:45
PROVIDERS: Family Medicine
DX: N39.0 Urinary tract infection, site not specified (principal); E83.42 Hypomagnesemia; I10 Essential (primary) hypertension; F41.9 Anxiety disorder, unspecified; F32.A Depression, unspecified; F10.10 Alcohol abuse, uncomplicated; K21.9 Gastro-esophageal reflux disease without esophagitis; Z88.8 Allergy status to other drugs, medicaments and biological substances; Z98.51 Tubal ligation status; Z90.710 Acquired absence of both cervix and uterus; Z98.890 Other specified postprocedural states

== ENCOUNTER 2022-11-22 10:52 | Emergency (ER) | payer OTHER ==
[~2022-11-22] VITALS: Wt 61.2 kg
[~2022-11-22 10:52] MED LIST changes: +OMNICEF300 MG PO
[2022-11-22 11:03] VITALS: BP 157/80
[2022-11-22 11:47] LABS: BASO % 0.8 % (0.0-1.0); EOS # 0.1 10*3/uL (0.0-0.4); EOS % 1.8 % (1.0-4.0); HEMATOCRIT 32.4 % (37.0-47.0); LYMPH # 0.6 10*3/uL (1.3-4.4); MEAN CELL VOLUME 88.8 fl (81.0-99.0); MEAN CORPUSCULAR HGB 30.1 pg (27.0-31.0); MEAN PLATELET VOLUME 10.3 fl (9.6-12.3); MONO # 0.5 10*3/uL (0.1-1.0); MONO % 11.5 % (3.0-9.0); NEUT # 2.8 10*3/uL (2.3-7.9); NEUT % 69.4 % (47.0-73.0); PLATELET COUNT AUTOMATED 96 10*3/uL (130-400); RED BLOOD COUNT 3.65 10*6/uL (4.10-5.10); RED CELL DISTRI WIDTH 12.5 % (0-14.5)
[2022-11-22 12:08] LABS: ALKALINE PHOSPHATASE 112 U/L (46-116); BUN 10 mg/dl (9-23); CHLORIDE 99 mmol/L (98-107); POTASSIUM 4.2 mmol/L (3.4-5.1); SGPT/ALT 14 U/L (10-49); TOTAL PROTEIN 7.4 gm/dL (6.0-8.0)
[2022-11-22] MEDS ORDERED: DEPAKENE250 M2 PO (12:29)
== END 2022-11-22 12:51 | disposition home or self-care (01) ==
LOC: ED 10:52
PROVIDERS: Family Medicine
DX: R56.9 Unspecified convulsions (principal); I10 Essential (primary) hypertension; E03.9 Hypothyroidism, unspecified; K21.9 Gastro-esophageal reflux disease without esophagitis; Z79.899 Other long term (current) drug therapy; Z79.82 Long term (current) use of aspirin; Z98.51 Tubal ligation status; Z90.710 Acquired absence of both cervix and uterus

== ENCOUNTER 2024-10-25 11:56 | Observation (INO) | payer OTHER ==
[~2024-10-25] VITALS: Ht 167.6 cm; Wt 99.3 kg
[~2024-10-25 11:56] MED LIST changes: +DEPAKENE250 M2 PO
[2024-10-25] MEDS ORDERED: SODIUM CHLORIDE 0.9% 1,000 ML IV ONE (12:15)
[2024-10-25] MEDS ORDERED: Thiamine 200 MG/2 ML VIAL IV ONE (12:15)
[2024-10-25 12:16] VITALS: BP 161/70
[2024-10-25 12:44] LABS: HEMATOCRIT 36.3 % (37.0-47.0); MEAN CELL VOLUME 87.5 fl (81.0-99.0); MEAN CORPUSCULAR HGB 30.4 pg (27.0-31.0); MEAN CORPUSCULAR HGB CONC 34.7 g/dl (33.0-37.0); MEAN PLATELET VOLUME 11.1 fl (9.6-12.3); PLATELET COUNT AUTOMATED 49 10*3/uL (130-400); RED BLOOD COUNT 4.15 10*6/uL (4.10-5.10); RED CELL DISTRI WIDTH 12.9 % (0-14.5); WHITE BLOOD COUNT 2.4 10*3/uL (4.8-10.8)
[2024-10-25 13:04] LABS: MANUAL DIFF REFLEX YES
[2024-10-25 13:08] LABS: ATYPICAL LYMPHS 1 % (0-0); POLYCHROMASIA SLIGHT; TOTAL CELLS COUNTED 100 #CELLS
[2024-10-25 13:09] LABS: ALKALINE PHOSPHATASE 79 U/L (46-116); BUN 9 mg/dl (9-23); CHLORIDE 104 mmol/L (98-107); CPK 42 U/L (34-171); PLATELET SUFFICIENCY LOW (NORMAL); POTASSIUM 4.8 mmol/L (3.4-5.1); SGPT/ALT 10 U/L (5-49); TOTAL PROTEIN 6.3 gm/dL (6.0-8.0); VALPROIC ACID (DEPAKENE) 64.8 ug/ml (50-100)
[2024-10-25 13:10] LABS: ACT PARTIAL THROMBO TIME 30.8 SECONDS (20.0-32.1)
[2024-10-25 13:11] LABS: ETHYL ALCOHOL < 3.0 mg/dl (<3)
[2024-10-25 13:20] LABS: BILIRUBIN Negative (Negative); BLOOD Negative (Negative); CLARITY Cloudy (Clear); COLOR Yellow (Yellow); GLUCOSE Negative (Negative); KETONE Negative (Negative); LEUKO ESTERASE 2+ (Negative); NITRITE Negative (Negative); SPECIFIC GRAVITY 1.015 (1.001-1.030)
[2024-10-25 13:27] LABS: URINE AMPHETAMINES Negative (1000ng/ml); URINE BARBITURATES Negative (200ng/ml); URINE BENZODIAZEPINES Negative (200ng/ml); URINE CANNABINOIDS (THC) Negative (50ng/ml); URINE COCAINE Negative (300ng/ml); URINE METHADONE Negative (300ng/ml); URINE OPIATES Negative (300ng/ml); URINE PHENCYCLIDINE Negative (25ng/ml)
[2024-10-25 13:41] LABS: BACTERIA 2+; RBC 0-2 rbc/hpf (0-2); WBC 21-30 wbc/hpf (0-5)
[2024-10-25] MEDS ORDERED: cefTRIAXone Sodium 1 GM/10 ML SYR IV ONE (13:50)
[2024-10-25 17:07] VITALS: BP 145/67
[2024-10-25 19:45] VITALS: BP 167/68
[2024-10-25] MEDS ORDERED: CENTRUM SILVER1 EAC5 PO (22:02)
[2024-10-25] MEDS ORDERED: HYDROXYZINE PAM25 M1 PO (22:04)
[2024-10-25] MEDS ORDERED: ESCITALOPRAM OXA5 MG PO (22:08)
[2024-10-25] MEDS ORDERED: OMEPRAZOLE MAGN20 MG PO (22:10)
[2024-10-25] MEDS ORDERED: MAGNESIUM OXID400 MG PO (22:11)
[2024-10-25] MEDS ORDERED: GOOD NEIGHBOR500 M2 PO (22:13)
[2024-10-25] MEDS ORDERED: Ondansetron4 MG PO (22:14)
[2024-10-25] MEDS ORDERED: VITAMIN B-12500 MC3 SL (22:15)
[2024-10-25] MEDS ORDERED: SODIUM CHLORI1000 M5 PO (22:16)
[2024-10-25] MEDS ORDERED: MAGNESIUM400 MG PO (22:21)
[2024-10-25] MEDS ORDERED: Acetaminophen/Hydrocodone 5 MG/325 MG TABLET PO PRN (23:40)
[2024-10-25] MEDS ORDERED: BISACODYL 10 MG SUPP R PRN (23:40)
[2024-10-25] MEDS ORDERED: Ondansetron Hydrochloride 4 MG/2 ML VIAL IV PRN (23:40)
[2024-10-25] MEDS ORDERED: Magnesium Hydroxide 30 ML UDC PO PRN (23:40)
[2024-10-25] MEDS ORDERED: ACETAMINOPHEN 650 MG SUPP R PRN (23:40)
[2024-10-25] MEDS ORDERED: ACETAMINOPHEN 325 MG TAB PO PRN (23:40)
[2024-10-25] MEDS ORDERED: BISACODYL 5 MG TAB PO PRN (23:40)
[2024-10-26] MEDS ORDERED: hydrOXYzine pamoate 25 MG CAP PO PRN (00:05)
[2024-10-26] MEDS ORDERED: Ondansetron Hydrochloride 4 MG TAB PO PRN (00:10)
[2024-10-26 00:32] VITALS: BP 121/55
[2024-10-26 05:35] VITALS: BP 131/62
[2024-10-26] MEDS ORDERED: Levothyroxine Sodium 25 MCG TAB PO SCH (06:00)
[2024-10-26 06:05] LABS: HEMATOCRIT 34.2 % (37.0-47.0); MEAN CELL VOLUME 87.9 fl (81.0-99.0); MEAN CORPUSCULAR HGB 30.3 pg (27.0-31.0); MEAN CORPUSCULAR HGB CONC 34.5 g/dl (33.0-37.0); MEAN PLATELET VOLUME 10.7 fl (9.6-12.3); PLATELET COUNT AUTOMATED 49 10*3/uL (130-400); RED BLOOD COUNT 3.89 10*6/uL (4.10-5.10); RED CELL DISTRI WIDTH 13.2 % (0-14.5); WHITE BLOOD COUNT 2.9 10*3/uL (4.8-10.8)
[2024-10-26 06:27] LABS: ACT PARTIAL THROMBO TIME 32.5 SECONDS (20.0-32.1)
[2024-10-26 06:51] LABS: MANUAL DIFF REFLEX YES
[2024-10-26 06:57] LABS: ALKALINE PHOSPHATASE 77 U/L (46-116); BUN 9 mg/dl (9-23); CHLORIDE 103 mmol/L (98-107); CHOLESTEROL 140 mg/dL (<200); FREE T4 0.87 ng/dl (0.89-1.76); LDL CHOLESTEROL 68 mg/dL (9-159); POTASSIUM 4.5 mmol/L (3.4-5.1); SGPT/ALT 8 U/L (5-49); TOTAL PROTEIN 6.1 gm/dL (6.0-8.0); TRIGLYCERIDES 116 mg/dl (<150)
[2024-10-26 06:58] LABS: VITAMIN D, 25-HYDROXY 66.2 ng/mL (30-100)
[2024-10-26 07:12] LABS: ATYPICAL LYMPHS 1 % (0-0); PLATELET SUFFICIENCY LOW (NORMAL); TOTAL CELLS COUNTED 100 #CELLS
[2024-10-26 08:32] VITALS: BP 144/63
[2024-10-26] MEDS ORDERED: Montelukast Sodium 10 MG TAB PO SCH (10:00)
[2024-10-26] MEDS ORDERED: OMEPRAZOLE 20 MG CAP PO SCH (10:00)
[2024-10-26] MEDS ORDERED: Metoprolol Tartrate 25 MG TAB PO SCH (10:00)
[2024-10-26] MEDS ORDERED: VALPROIC ACID 250 MG CAP PO SCH (10:00)
[2024-10-26] MEDS ORDERED: LEVETIRACETAM 500 MG TAB PO SCH (10:00)
[2024-10-26] MEDS ORDERED: ESCITALOPRAM OXALATE 10 MG TAB PO SCH ×2 (10:00)
[2024-10-26] MEDS ORDERED: Enoxaparin Sodium 40 MG/0.4 ML SYR SC SCH ×2 (10:00)
[2024-10-26] MEDS ORDERED: SODIUM CHLORIDE 1 GM TAB PO SCH (10:00)
[2024-10-26] MEDS ORDERED: OMNICEF300 MG PO (10:57)
[2024-10-26] MEDS ORDERED: cefTRIAXone Sodium 1 GM in SYRINGE INFUSION 10 ML IV SCH (15:00)
[2024-10-26] MEDS ORDERED: Cetirizine Hydrochloride 10 MG TAB PO SCH (22:00)
[2024-10-26] MEDS ORDERED: MAGNESIUM OXIDE 400 MG TAB PO SCH (22:00)
[2024-10-26] MEDS ORDERED: ATORVASTATIN CALCIUM 40 MG TABLET PO SCH (22:00)
[2024-10-26] MEDS ORDERED: FOLIC ACID 1 MG TAB PO SCH (22:00)
== END 2024-10-26 11:04 | disposition home or self-care (01) ==
LOC: ED 11:56 → EDHOLD 22:15
PROVIDERS: Nurse Practitioner Family; Student in an Organized Health Care Education/Training Program; ADMIT Internal Medicine; ATTEND Internal Medicine
DX: R00.1 Bradycardia, unspecified (principal); D72.819 Decreased white blood cell count, unspecified; D69.6 Thrombocytopenia, unspecified; E72.20 Disorder of urea cycle metabolism, unspecified; N39.0 Urinary tract infection, site not specified; R56.9 Unspecified convulsions; R41.9 Unspecified symptoms and signs involving cognitive functions and awareness; J30.2 Other seasonal allergic rhinitis; I10 Essential (primary) hypertension; F32.9 Major depressive disorder, single episode, unspecified; E03.9 Hypothyroidism, unspecified; G93.41 Metabolic encephalopathy; K21.9 Gastro-esophageal reflux disease without esophagitis; D64.9 Anemia, unspecified; Z79.899 Other long term (current) drug therapy

== ENCOUNTER 2024-10-28 11:16 | Emergency (ER) | payer OTHER ==
[~2024-10-28] VITALS: Ht 165.1 cm; Wt 72.6 kg
[~2024-10-28 11:16] MED LIST changes: +CENTRUM SILVER1 EAC5 PO; +ESCITALOPRAM OXA5 MG PO; +GOOD NEIGHBOR500 M2 PO; +HYDROXYZINE PAM25 M1 PO; +MAGNESIUM OXID400 MG PO; +MAGNESIUM400 MG PO; +OMEPRAZOLE MAGN20 MG PO; +Ondansetron4 MG PO; +SODIUM CHLORI1000 M5 PO; +VITAMIN B-12500 MC3 SL
[2024-10-28 11:47] LABS: BILIRUBIN Negative (Negative); BLOOD Negative (Negative); CLARITY Clear (Clear); COLOR Yellow (Yellow); GLUCOSE Negative (Negative); KETONE Negative (Negative); LEUKO ESTERASE Trace (Negative); NITRITE Negative (Negative); SPECIFIC GRAVITY 1.025 (1.001-1.030)
[2024-10-28] MEDS ORDERED: SODIUM CHLORIDE 0.9% 1,000 ML IV ONE (11:50)
[2024-10-28 11:54] LABS: BACTERIA 2+
[2024-10-28 12:13] LABS: BASO % 0.4 % (0.0-1.0); EOS % 1.6 % (1.0-4.0); HEMATOCRIT 36.5 % (37.0-47.0); MEAN CELL VOLUME 88.2 fl (81.0-99.0); MEAN CORPUSCULAR HGB 30.4 pg (27.0-31.0); MEAN CORPUSCULAR HGB CONC 34.5 g/dl (33.0-37.0); MEAN PLATELET VOLUME 9.9 fl (9.6-12.3); MONO # 0.3 10*3/uL (0.1-1.0); MONO % 10.7 % (3.0-9.0); NEUT # 1.7 10*3/uL (2.3-7.9); NEUT % 65.5 % (47.0-73.0); PLATELET COUNT AUTOMATED 56 10*3/uL (130-400); RED BLOOD COUNT 4.14 10*6/uL (4.10-5.10); WHITE BLOOD COUNT 2.5 10*3/uL (4.8-10.8)
[2024-10-28 12:17] LABS: URINE AMPHETAMINES Negative (1000ng/ml); URINE BARBITURATES Negative (200ng/ml); URINE BENZODIAZEPINES Negative (200ng/ml); URINE CANNABINOIDS (THC) Negative (50ng/ml); URINE COCAINE Negative (300ng/ml); URINE METHADONE Negative (300ng/ml); URINE OPIATES Negative (300ng/ml); URINE PHENCYCLIDINE Negative (25ng/ml)
[2024-10-28 12:37] LABS: ALKALINE PHOSPHATASE 87 U/L (46-116); BUN 9 mg/dl (9-23); CHLORIDE 104 mmol/L (98-107); POTASSIUM 4.3 mmol/L (3.4-5.1); SGPT/ALT 11 U/L (5-49); TOTAL PROTEIN 6.8 gm/dL (6.0-8.0)
[2024-10-28 13:40] VITALS: BP 148/62
== END 2024-10-28 15:00 | disposition home or self-care (01) ==
LOC: ED 11:16
PROVIDERS: Nurse Practitioner
DX: T42.6X1A Poisoning by other antiepileptic and sedative-hypnotic drugs, accidental (unintentional), initial encounter (principal); R41.82 Altered mental status, unspecified; K21.9 Gastro-esophageal reflux disease without esophagitis; F41.9 Anxiety disorder, unspecified; I10 Essential (primary) hypertension; E03.9 Hypothyroidism, unspecified; F32.A Depression, unspecified; Z90.710 Acquired absence of both cervix and uterus; Z20.822 Contact with and (suspected) exposure to COVID-19; Z79.899 Other long term (current) drug therapy; Y92.098 Other place in other non-institutional residence as the place of occurrence of the external cause